=== PATIENT | female | born 1985 ===

== ENCOUNTER 2023-09-24 09:45 | Outpatient (REF) | payer BC, SELFPAY ==
--- NOTE | 2023-09-24 09:30 | PAPFT_PTH ---
PATIENT: LIANNE JOE LOC: [facility] U#:[id number] AGE/SX: 38/F ROOM: RE09/24/[address]: Jennifer Horn DO : 1985 BED: DIS: 09/24/2023 SPEC #: [id number] RECD: 09/24/23 18:31 STATUS: SHANAE REQ #: [id number] KELSIE: 09/24/23 09:[address]: Jennifer Horn DEPT: [facility] Cytology RECD BY: Marija Monroy ENTERED: 09/24/23 18:31 SP TYPE: PAPFT OTHR DR: Unknown,Unknown Tissues: 1 - CX/ENDOCX FOR PAP SMEARS Procedures: PAP THIN PREP/[facility] Screening HPV DNA PROBE Comments: [id number] (HPV 16 & 18/45) (CHLAMYDIA/GC)
[2023-09-25 13:23] LABS: Chlamydia Result Negative (Negative); GC Result Negative (Negative)
== END 2023-09-24 09:46 | disposition home or self-care (01) ==
LOC: LBN 09:45
PROVIDERS: Visit Provider Obstetrics & Gynecology
DX: Z12.4 Encounter for screening for malignant neoplasm of cervix (principal)
CPT/HCPCS: 87491; 87591; 88142; 87624